=== PATIENT | male | born 1970 | race Caucasian/White ===

== ENCOUNTER → 2017-01-11 | Outpatient (CLI) | payer BC ==
[~2017-01-11] MED LIST: ASPIRIN E.C. 8181 MG PO; GLUCOPHAGE XR500 M1 PO; LIPITOR 40MG TA40 MG PO; PRINIVIL10 MG PO; ZYLOPRIM 100MG100 MG PO; ZYLOPRIM 300MG300 MG PO
== END ==
LOC: BHSO 15:01
DX: F41.1 Generalized anxiety disorder (principal)

== ENCOUNTER → 2017-07-10 | Outpatient (CLI) | payer BC | LOC: BHSO 15:55 | DX: F41.1 Generalized anxiety disorder (principal) ==

== ENCOUNTER → 2017-09-13 | Outpatient (CLI) | payer BC | LOC: BHSO 16:09 | DX: F41.1 Generalized anxiety disorder (principal) | CPT/HCPCS: G0463 ==

== ENCOUNTER → 2018-01-02 | Outpatient (CLI) | payer BC ==
[~2018-01-02] MED LIST changes: +LAMICTAL 100MG100 MG PO; +LEXAPRO 10MG10 MG PO
== END ==
LOC: BHSO 15:09
DX: F41.1 Generalized anxiety disorder (principal)
CPT/HCPCS: G0463

== ENCOUNTER → 2018-06-11 | Outpatient (CLI) | payer BC | LOC: BHSO 08:41 | DX: F41.1 Generalized anxiety disorder (principal) | CPT/HCPCS: G0463 ==

== ENCOUNTER → 2018-12-10 | Outpatient (CLI) | payer BC | LOC: BHSO 12-03 10:08 | DX: F10.20 Alcohol dependence, uncomplicated (principal) | CPT/HCPCS: G0463 ==

== ENCOUNTER → 2019-01-09 | Outpatient (CLI) | payer BC | LOC: BHSO 10:37 | DX: F41.1 Generalized anxiety disorder (principal) | CPT/HCPCS: G0463 ==

== ENCOUNTER → 2020-02-13 | Outpatient (CLI) | payer BC ==
[2020-02-13 16:56] LABS: C-REACTIVE PROTEIN < 0.5 mg/dL (0.0-0.9)
== END ==
LOC: COL.LAB 15:28
PROVIDERS: Orthopaedic Surgery Sports Medicine
DX: M25.512 Pain in left shoulder (principal)